=== PATIENT | female | born 1985 | race Caucasian/White ===

== ENCOUNTER 2021-12-14 10:14 | Emergency (ER) | payer MEDICAID ==
[~2021-12-14] VITALS: Ht 160 cm; Wt 71.2 kg
[2021-12-14 10:19] VITALS: BP_SYST 114
[2021-12-14] MEDS ORDERED: DEXAMETHASONE SOD PHOSPHATE 10 MG/ML VIAL IM ONE (11:45)
[2021-12-14] MEDS ORDERED: ACETAMINOPHEN 500 MG TABLET PO ONE (11:45)
[2021-12-14 12:34] LABS: STREPTOCOCCUS A SCREEN (RAPID) NEGATIVE (NEGATIVE)
[2021-12-14 12:38] LABS: BILIRUBIN,URINE NEGATIVE (NEGATIVE); BLOOD, URINE 3+ (NEGATIVE); CLARITY/URINE CLEAR (CLEAR); COLOR,URINE YELLOW (YELLOW); GLUCOSE,URINE NEGATIVE (NEGATIVE); KETONES,URINE NEGATIVE (NEGATIVE); LEUKOCYTE ESTERASE ,URINE NEGATIVE (NEGATIVE); NITRITE, URINE NEGATIVE (NEGATIVE); PROTEIN URINE NEGATIVE (NEGATIVE); UROBILINOGEN,URINE 0.2 (0.2-1.0)
[2021-12-14] MEDS ORDERED: ACETAMINOPHEN CHILDREN'S 160 MG/5 ML ORAL.SUSP PO ONE (12:45)
[2021-12-14] MEDS ORDERED: ACETAMINOPHEN 650 MG/20.3 ML UDC ONE (12:53)
[2021-12-14 12:56] LABS: BACTERIA,URINE FEW /HPF (None Seen); MUCUS,URINE 1+ /LPF (None Seen); WBC,URINE 0-3 /HPF (0-3)
[2021-12-14] MEDS ORDERED: IBUP-1969 PO (13:09)
[2021-12-14] MEDS ORDERED: TRAM50TA2 PO (13:09)
[2021-12-14 14:04] VITALS: BP_SYST 114
== END 2021-12-14 14:04 | disposition home or self-care (01) ==
LOC: SED 10:14
DX: J02.8 Acute pharyngitis due to other specified organisms (principal); Z88.0 Allergy status to penicillin; Z20.822 Contact with and (suspected) exposure to COVID-19
CPT/HCPCS: 36415; 81000; 86403; 87081; 87426; 96372; 99283; J1100

== ENCOUNTER 2022-07-20 20:53 | Emergency (ER) | payer MEDICAID ==
[~2022-07-20] VITALS: Ht 160 cm; Wt 89.8 kg
[~2022-07-20 20:53] MED LIST: IBUP-1969 PO; TRAM50TA2 PO
[2022-07-20 21:13] VITALS: BP_SYST 164
[2022-07-20 22:21] LABS: BASOPHILS # (AUTO) 0.1 K/uL (0.0-0.2); BASOPHILS % (AUTO) 0.6 % (0.0-2.0); EOSINOPHILS % (AUTO) 0.3 % (0.0-4.0); HEMATOCRIT 39.5 % (36-48); HEMOGLOBIN 13.4 g/dL (12.0-16.0); LYMPHOCYTES # (AUTO) 2.7 K/uL (1.0-5.5); LYMPHOCYTES % (AUTO) 23.8 % (20.5-51.5); MEAN CORPUSCULAR HEMOGLOBIN 32 pg (27-31); MEAN CORPUSCULAR HGB CONC 34 % (32-36); MEAN CORPUSCULAR VOLUME 93 fL (79.0-98.0); MONOCYTES # (AUTO) 0.5 K/uL (0.0-1.0); MONOCYTES % (AUTO) 4.7 % (1.7-9.3); NEUTROPHILS % (AUTO) 70.6 % (40.0-70.0); PLATELET COUNT (AUTO) 354 K/uL (130-430); RED BLOOD CELL COUNT(AUTO) 4.25 MIL/uL (4.2-6.2); RED CELL DISTRIBUTION WIDTH 13.1 % (9.0-15.0); WHITE BLOOD COUNT (AUTO) 11.4 K/uL (4.8-10.8)
[2022-07-20 22:40] LABS: CALCIUM 9.7 mg/dL (8.4-11.0); CREATININE 0.74 mg/dL (0.55-1.30)
[2022-07-20 22:47] LABS: ALBUMIN 3.7 g/dL (3.4-4.8); TOTAL BILIRUBIN 0.7 mg/dL (0.0-1.0)
[2022-07-20 22:54] LABS: BILIRUBIN,URINE NEGATIVE (NEGATIVE); BLOOD, URINE 2+ (NEGATIVE); COLOR,URINE YELLOW (YELLOW); GLUCOSE,URINE NEGATIVE (NEGATIVE); KETONES,URINE TRACE (NEGATIVE); LEUKOCYTE ESTERASE ,URINE NEGATIVE (NEGATIVE); NITRITE, URINE NEGATIVE (NEGATIVE); PROTEIN URINE NEGATIVE (NEGATIVE); UROBILINOGEN,URINE 0.2 (0.2-1.0)
[2022-07-20 23:42] LABS: CLARITY/URINE SLIGHTLY CLOUDY (CLEAR)
[2022-07-20 23:45] LABS: BACTERIA,URINE None Seen /HPF (None Seen); MUCUS,URINE 1+ /LPF (None Seen); WBC,URINE 0-3 /HPF (0-3)
== END 2022-07-21 01:00 | disposition left against medical advice (07) ==
LOC: SED 20:53
DX: R10.30 Lower abdominal pain, unspecified (principal); R51.9 Headache, unspecified; Z79.899 Other long term (current) drug therapy
CPT/HCPCS: 36415; 80053; 81000; 81025; 83690; 85025; 99283

== ENCOUNTER 2022-12-04 13:23 | Emergency (ER) | payer MEDICAID ==
[~2022-12-04] VITALS: Ht 160 cm; Wt 74.8 kg
[~2022-12-04 13:23] MED LIST changes: +FLUORESCEIN SODIUM 1 MG OPHTHALMIC STRIP OP ONE; +PROPARACAINE (OPTHANINE 0.5%) 15 ML DROPS OP ONE
[2022-12-04 14:00] VITALS: BP_SYST 122
--- NOTE | 2022-12-04 14:00 | NUR ---
PT BIB SELF, AWAKE AND ALERT AOX4, NO SOB OR DISTRESS. PT C/O PAIN AND REDNESS TO LEFT EYE. PT STATED SHE INSERTED FAKE EYELASHES LAST NIGHT AND ITS BEEN BUGGING HER EVER SINCE
--- NOTE | 2022-12-04 14:01 | NUR ---
MD DR SHERIDAN AT BEDSIDE
--- NOTE | 2022-12-04 14:10 | NUR ---
Patient to ER bed 4 to gown for evaluation. Side rails up. Report given to BELÉN AVILA.
[2022-12-04] MEDS ORDERED: TRAM50TA2 PO (14:25)
[2022-12-04] MEDS ORDERED: OFLO5DRO6 EACH EYE (14:25)
[2022-12-04 14:43] VITALS: BP_SYST 122
--- NOTE | 2022-12-04 14:45 | NUR ---
Patient given written and verbal discharge instructions and verbalizes understanding. ER MD DR SHERIDAN discussed with patient the results and treatment provided. Patient in stable condition. ID arm band removed. Rx of OCOFLOX AND TRAMADOL given. Patient educated on pain management and to follow up with PMD. Pain Scale 2/10. Opportunity for questions provided and answered. Medication side effect fact sheet provided.
== END 2022-12-04 14:45 | disposition home or self-care (01) ==
LOC: SED 13:23
DX: S05.02XA Injury of conjunctiva and corneal abrasion without foreign body, left eye, initial encounter (principal); Z88.0 Allergy status to penicillin; Z79.899 Other long term (current) drug therapy; X58.XXXA Exposure to other specified factors, initial encounter; Y93.89 Activity, other specified; Y92.89 Other specified places as the place of occurrence of the external cause; Y99.8 Other external cause status
CPT/HCPCS: 99283

== ENCOUNTER 2022-12-15 11:39 | Emergency (ER) | payer MEDICAID ==
[~2022-12-15] VITALS: Ht 160 cm; Wt 81.2 kg
[~2022-12-15 11:39] MED LIST changes: -FLUORESCEIN SODIUM 1 MG OPHTHALMIC STRIP OP ONE; +OFLO5DRO6 EACH EYE; -PROPARACAINE (OPTHANINE 0.5%) 15 ML DROPS OP ONE
[2022-12-15 11:40] VITALS: BP_SYST 118
[2022-12-15] MEDS ORDERED: KETOROLAC TROMETHAMINE 60 MG/2 ML VIAL IM ONE (12:00)
[2022-12-15] MEDS ORDERED: NAPR-690 PO (12:13)
[2022-12-15 12:41] VITALS: BP_SYST 115
== END 2022-12-15 12:43 | disposition home or self-care (01) ==
LOC: SED 11:39
DX: Q68.0 Congenital deformity of sternocleidomastoid muscle (principal); M54.2 Cervicalgia; Z88.0 Allergy status to penicillin; Z79.899 Other long term (current) drug therapy
CPT/HCPCS: 99283; 96372; J1885

== ENCOUNTER 2022-12-17 17:32 | Emergency (ER) | payer MEDICAID ==
[~2022-12-17] VITALS: Ht 160 cm; Wt 78.0 kg
[~2022-12-17 17:32] MED LIST changes: +NAPR-690 PO
[2022-12-17 17:47] VITALS: BP_SYST 133
--- NOTE | 2022-12-17 18:49 | NUR ---
Patient to DOROT[facility] SWEENEY for evaluation.
--- NOTE | 2022-12-17 19:30 | NUR ---
Note undone in EDM - 12/17/22 at 2349 by RASHINURAL PT BIB SELF FROM HOME, AMBULATED TO HALLWAY BED 1. PT A&Ox4, ABLE TO MAKE NEEDS KNOWN. PT C/O NECK PAIN SINCE TUESDAY. PT STATES SHE CAME TO ED ON Tuesday12/13/2022. PT DENIES INJURY. PT STATES SHE WOKE UP WITH THE PAIN IN NECK AND IT IS GETTING "WORSE." PT RATES PAIN 04/10. PT DESCRIBES PAIN SHARP AND THROBBING. PT STATES SHE WAS PRESECRIBED MOTRIN AT DISCHARGE ON TUESDAY FOR THE PAIN AND IT HAS BEEN INEFFECTIVE. PT DENIES N/V/D, SOB AND CHEST PAIN. SAFETY PRECAUTIONS IN PLACE.
--- NOTE | 2022-12-17 19:30 | NUR ---
PT BIB SELF FROM HOME, AMBULATED TO HALLWAY BED 1. PT A&Ox4, ABLE TO MAKE NEEDS KNOWN. PT C/O NECK PAIN SINCE TUESDAY. PT STATES SHE CAME TO ED ON Tuesday12/15/2022. PT DENIES INJURY. PT STATES SHE WOKE UP WITH THE PAIN IN NECK AND IT IS GETTING "WORSE." PT RATES PAIN 9/10. PT DESCRIBES PAIN SHARP AND THROBBING. PT STATES SHE WAS PRESECRIBED MOTRIN AT DISCHARGE ON TUESDAY FOR THE PAIN AND IT HAS BEEN INEFFECTIVE. PT DENIES N/V/D, SOB AND CHEST PAIN. SAFETY PRECAUTIONS IN PLACE.
[2022-12-17] MEDS ORDERED: ACETAMINOPHEN 500 MG TABLET PO ONE (20:00)
[2022-12-17] MEDS ORDERED: CYCLOBENZAPRINE HCL 10 MG TABLET (FLEXERIL) PO ONE (20:00)
[2022-12-17] MEDS ORDERED: KETOROLAC TROMETHAMINE 30 MG VIAL IM ONE (20:00)
[2022-12-17] MEDS ORDERED: LIDOCAINE PATCH 5% 1 EA TP ONE (20:00)
--- NOTE | 2022-12-17 20:00 | NUR ---
ER at bedside examining patient.
[2022-12-17] MEDS ORDERED: IBUP-1969 PO (22:14)
[2022-12-17] MEDS ORDERED: CYCL10TA24 PO (22:14)
[2022-12-17] MEDS ORDERED: ACET-2634 PO (22:14)
[2022-12-17 22:18] VITALS: BP_SYST 130
--- NOTE | 2022-12-17 22:18 | NUR ---
Patient given written and verbal discharge instructions and verbalizes understanding. ER DR WILHELM discussed with patient the results and treatment provided. Patient in stable condition. ID arm band removed. Rx of TYLENOL, FLEXERIL, MOTRIN given. Patient educated on pain management and to follow up with PMD. Pain Scale 2/10. Opportunity for questions provided and answered. Medication side effect fact sheet provided.
== END 2022-12-17 22:18 | disposition home or self-care (01) ==
LOC: SED 17:32
DX: S16.1XXA Strain of muscle, fascia and tendon at neck level, initial encounter (principal); M43.6 Torticollis; Z88.0 Allergy status to penicillin; Z79.899 Other long term (current) drug therapy; X58.XXXA Exposure to other specified factors, initial encounter; Y93.89 Activity, other specified; Y92.89 Other specified places as the place of occurrence of the external cause; Y99.8 Other external cause status
CPT/HCPCS: 99285; 72125; 76376; 96372; J1885

== ENCOUNTER 2023-10-23 14:01 | Emergency (ER) | payer MEDICAID ==
[~2023-10-23] VITALS: Ht 160 cm; Wt 76.2 kg
[~2023-10-23 14:01] MED LIST changes: +ACET-2634 PO; +CYCL10TA24 PO
[2023-10-23 14:13] VITALS: BP_SYST 124; PULSE 115; RESP 18; TEMP 97.8; O2SAT 95
[2023-10-23 15:12] VITALS: BP_SYST 110; PULSE 78; RESP 16; TEMP 97.8; O2SAT 98
== END 2023-10-23 15:10 | disposition home or self-care (01) ==
LOC: SED 14:01
DX: S30.860A Insect bite (nonvenomous) of lower back and pelvis, initial encounter (principal); Z88.0 Allergy status to penicillin; Z79.899 Other long term (current) drug therapy; W57.XXXA Bitten or stung by nonvenomous insect and other nonvenomous arthropods, initial encounter; Y93.89 Activity, other specified; Y92.89 Other specified places as the place of occurrence of the external cause; Y99.8 Other external cause status
CPT/HCPCS: 99281